=== PATIENT | female | born 1990 | race African-American/Black ===

== ENCOUNTER 2017-06-01 04:19 | Emergency (ER) | payer MEDICAID ==
[~2017-06-01] VITALS: Ht 157.5 cm; Wt 49.9 kg
[2017-06-01 05:07] VITALS: BP 163/99
== END 2017-06-01 05:52 | disposition home or self-care (01) ==
LOC: ER 04:19
DX: F41.9 Anxiety disorder, unspecified (principal); F32.9 Major depressive disorder, single episode, unspecified
CPT/HCPCS: A4606; Z7610